=== PATIENT | female | born 1980 | race Caucasian/White ===

== ENCOUNTER 2020-09-10 21:19 | Emergency (ER) | payer SELFPAY ==
[~2020-09-10] VITALS: Ht 165.1 cm; Wt 102.3 kg
[2020-09-10 21:31] VITALS: TEMP 99.6
[2020-09-10 21:43] LABS: COLLECTION METHOD CLEAN CATCH
[2020-09-10 22:06] LABS: PH 5 (5-8); SQUAMOUS EPITHELIAL 0-2 /hpf; URINE APPEARANCE Cloudy; URINE BACTERIA None Seen /hpf; URINE BILIRUBIN Negative (NEGATIVE); URINE BLOOD 3+ (NEGATIVE); URINE COLOR Amber; URINE GLUCOSE Negative (NEGATIVE); URINE KETONE Negative (NEGATIVE); URINE LEUKOCYTE ESTERASE 2+ (NEGATIVE); URINE NITRATE Negative (NEGATIVE); URINE PROTEIN(semi-quant) 2+ (NEGATIVE); URINE RBC >50 /hpf; URINE UROBILINOGEN Negative (NEGATIVE)
[2020-09-10 22:10] LABS: BASO # 0.1 (0.0-0.2); BASO % 0.5 % (0.0-2.0); EOS # 0.3 (0.0-0.7); GRAN # 7.1 (1.4-6.5); GRAN % 68.1 % (42.2-75.2); HEMATOCRIT 37.8 % (37.0-47.0); HEMOGLOBIN 12.5 g/dl (12.5-16.0); LYMPH # 2.1 (1.2-3.4); LYMPH % 19.9 % (20.0-51.0); MEAN CELL VOLUME 85 fl (80.0-100.0); MEAN CORPUSCULAR HEMOGLOBIN 28 pg (27.0-31.0); MEAN CORPUSCULAR HGB CONC 33 g/dl (33.0-37.0); MEAN PLATELET VOLUME 9.7 fl (7.4-10.4); MONO # 0.9 (0.1-0.6); MONO % 8.2 % (1.7-9.3); PLATELET COUNT 399 K/mm3 (130-400); RED BLOOD COUNT 4.45 M/mm3 (4.10-5.30); REDCELL DISTRIBUTION WIDTH-CV 12.1 % (11.5-14.5)
[2020-09-10 22:15] LABS: ALBUMIN 3.9 gm/dL (3.5-5.0); BILIRUBIN,TOTAL 0.8 mg/dL (0.0-1.0); CALCIUM 9.1 mg/dL (8.4-10.2); CREATININE, serum 0.99 (0.52-1.25); POTASSIUM 3.6 mmol/L (3.4-5.0); TOTAL PROTEIN 7.6 gm/dL (6.4-8.2)
[2020-09-10 22:29] LABS: C-REACTIVE PROTEIN 16.5 mg/dL (0.0-0.9)
[2020-09-10 23:10] VITALS: BP 129/78; PULSE 82
== END 2020-09-10 23:16 | disposition home or self-care (01) ==
LOC: COL.ER 21:19
PROVIDERS: Physician Assistant
DX: N30.90 Cystitis, unspecified without hematuria (principal); Z88.1 Allergy status to other antibiotic agents
CPT/HCPCS: J0696; J2405; J7030